=== PATIENT | female | born 1995 | race Caucasian/White ===

== ENCOUNTER 2018-12-02 18:39 | Emergency (ER) | payer OTHER, MEDICAID ==
[~2018-12-02] VITALS: Ht 167.6 cm; Wt 93.2 kg
[2018-12-02 18:47] VITALS: TEMP 98.5
[2018-12-02 20:39] VITALS: BP 107/92; PULSE 83
== END 2018-12-02 20:41 | disposition home or self-care (01) ==
LOC: COL.ER 18:39
DX: S90.32XA Contusion of left foot, initial encounter (principal); S90.31XA Contusion of right foot, initial encounter; W16.512A Jumping or diving into swimming pool striking water surface causing other injury, initial encounter

== ENCOUNTER 2018-12-31 10:00 | Emergency (ER) | payer OTHER, MEDICAID ==
[~2018-12-31] VITALS: Ht 167.6 cm; Wt 90.9 kg
[2018-12-31 10:17] VITALS: TEMP 98.1
[2018-12-31] MEDS ORDERED: PRISTIQ 50 MG T50 MG PO (10:56)
[2018-12-31] MEDS ORDERED: XANAX 1MG1 MG PO (10:56)
[2018-12-31] MEDS ORDERED: ZYRTEC 10MG10 MG PO (10:57)
[2018-12-31] MEDS ORDERED: SINGULAIR 110 MG/TAB PO (10:57)
[2018-12-31 11:10] LABS: COLLECTION METHOD CLEAN CATCH
[2018-12-31 11:20] LABS: MUCOUS Present /lpf; PH 5 (5-8); SQUAMOUS EPITHELIAL 0-2 /hpf; URINE APPEARANCE Hazy; URINE BACTERIA None Seen /hpf; URINE BILIRUBIN Negative (NEGATIVE); URINE BLOOD Negative (NEGATIVE); URINE COLOR Yellow; URINE GLUCOSE Negative (NEGATIVE); URINE KETONE Negative (NEGATIVE); URINE LEUKOCYTE ESTERASE Trace (NEGATIVE); URINE NITRATE Negative (NEGATIVE); URINE PROTEIN(semi-quant) Negative (NEGATIVE); URINE RBC 0-2 /hpf; URINE UROBILINOGEN Negative (NEGATIVE)
[2018-12-31 12:25] VITALS: BP 99/77; PULSE 86
== END 2018-12-31 12:23 | disposition home or self-care (01) ==
LOC: COL.ER 10:00
PROVIDERS: Emergency Medicine
DX: N76.0 Acute vaginitis (principal); B96.89 Other specified bacterial agents as the cause of diseases classified elsewhere; Z20.2 Contact with and (suspected) exposure to infections with a predominantly sexual mode of transmission
CPT/HCPCS: J0696

== ENCOUNTER 2019-01-03 02:18 | Emergency (ER) | payer OTHER, MEDICAID ==
[~2019-01-03] VITALS: Ht 167.6 cm; Wt 90.9 kg
[~2019-01-03 02:18] MED LIST: PRISTIQ 50 MG T50 MG PO; SINGULAIR 110 MG/TAB PO; XANAX 1MG1 MG PO; ZYRTEC 10MG10 MG PO
[2019-01-03 02:20] VITALS: BP 142/77; TEMP 99.3
[2019-01-03] MEDS ORDERED: FLAGYL500 MG PO (03:11)
[2019-01-03 03:28] VITALS: PULSE 84
== END 2019-01-03 03:28 | disposition home or self-care (01) ==
LOC: COL.ER 02:18
DX: N76.0 Acute vaginitis (principal); F41.9 Anxiety disorder, unspecified; F32.9 Major depressive disorder, single episode, unspecified

== ENCOUNTER 2019-03-10 02:41 | Emergency (ER) | payer OTHER, MEDICAID ==
[~2019-03-10] VITALS: Ht 167.6 cm; Wt 98.6 kg
[~2019-03-10 02:41] MED LIST changes: +FLAGYL500 MG PO
[2019-03-10 02:46] VITALS: BP 127/57; TEMP 98.4
[2019-03-10 03:12] LABS: COLLECTION METHOD CLEAN CATCH
[2019-03-10 03:18] LABS: MUCOUS Present /lpf; PH 5 (5-8); URINE APPEARANCE Clear; URINE BACTERIA None Seen /hpf; URINE BILIRUBIN Negative (NEGATIVE); URINE BLOOD Negative (NEGATIVE); URINE COLOR Yellow; URINE GLUCOSE Negative (NEGATIVE); URINE KETONE Negative (NEGATIVE); URINE LEUKOCYTE ESTERASE Negative (NEGATIVE); URINE NITRATE Negative (NEGATIVE); URINE PROTEIN(semi-quant) Negative (NEGATIVE); URINE RBC None Seen /hpf; URINE UROBILINOGEN Negative (NEGATIVE)
[2019-03-10 04:17] LABS: BASO % 0.5 % (0.0-2.0); EOS # 0.2 (0.0-0.7); EOS % 2.2 % (0-4.0); GRAN # 4.9 (1.4-6.5); GRAN % 59.6 % (42.2-75.2); HEMATOCRIT 38.6 % (37.0-47.0); HEMOGLOBIN 12.7 g/dl (12.5-16.0); LYMPH # 2.3 (1.2-3.4); LYMPH % 28.4 % (20.0-51.0); MEAN CELL VOLUME 85 fl (80.0-100.0); MEAN CORPUSCULAR HEMOGLOBIN 28 pg (27.0-31.0); MEAN CORPUSCULAR HGB CONC 33 g/dl (33.0-37.0); MEAN PLATELET VOLUME 10.1 fl (7.4-10.4); MONO # 0.7 (0.1-0.6); MONO % 8.9 % (1.7-9.3); PLATELET COUNT 237 K/mm3 (130-400); RED BLOOD COUNT 4.53 M/mm3 (4.10-5.30); REDCELL DISTRIBUTION WIDTH-CV 13.2 % (11.5-14.5)
[2019-03-10 04:30] LABS: ALANINE AMINOTRANSFERASE 21 U/L (9-52); ALBUMIN 4.2 gm/dL (3.5-5.0); ALKALINE PHOSPHATASE 85 U/L (50-136); ANION GAP 11 mmol/L (7-16); AST,SGOT 22 U/L (15-37); BILIRUBIN,TOTAL < 0.1 mg/dL (0.0-1.0); BLOOD UREA NITROGEN 13 mg/dL (7-17); C-REACTIVE PROTEIN 0.6 mg/dL (0.0-0.9); CALCIUM 9.3 mg/dL (8.4-10.2); CARBON DIOXIDE 24 mmol/L (22-30); CHLORIDE 106 mmol/L (98-107); CREATININE, serum 0.79 (0.52-1.25); GLUCOSE 102 mg/dL (74-106); POTASSIUM 3.9 mmol/L (3.4-5.0); SODIUM 141 mmol/L (137-145); TOTAL PROTEIN 7.6 gm/dL (6.4-8.2)
[2019-03-10 05:41] VITALS: PULSE 74
== END 2019-03-10 05:41 | disposition home or self-care (01) ==
LOC: COL.ER 02:41
PROVIDERS: Emergency Medicine
DX: R10.30 Lower abdominal pain, unspecified (principal); F41.9 Anxiety disorder, unspecified; F32.9 Major depressive disorder, single episode, unspecified; J45.909 Unspecified asthma, uncomplicated
CPT/HCPCS: J1885

== ENCOUNTER 2019-03-24 20:09 | Emergency (ER) | payer OTHER, MEDICAID ==
[~2019-03-24] VITALS: Ht 167.6 cm; Wt 98.2 kg
[2019-03-24 20:13] VITALS: TEMP 98.3
[2019-03-24 20:35] LABS: COLLECTION METHOD CLEAN CATCH
[2019-03-24 20:44] LABS: PH 6 (5-8); URINE APPEARANCE Hazy; URINE BACTERIA None Seen /hpf; URINE BILIRUBIN Negative (NEGATIVE); URINE BLOOD Negative (NEGATIVE); URINE COLOR Yellow; URINE GLUCOSE Negative (NEGATIVE); URINE KETONE Negative (NEGATIVE); URINE LEUKOCYTE ESTERASE Negative (NEGATIVE); URINE NITRATE Negative (NEGATIVE); URINE PROTEIN(semi-quant) Negative (NEGATIVE); URINE RBC 0-2 /hpf; URINE UROBILINOGEN Negative (NEGATIVE)
[2019-03-24 20:52] LABS: BASO % 0.5 % (0.0-2.0); EOS # 0.2 (0.0-0.7); GRAN # 5.4 (1.4-6.5); GRAN % 67.4 % (42.2-75.2); HEMATOCRIT 41.8 % (37.0-47.0); HEMOGLOBIN 13.9 g/dl (12.5-16.0); LYMPH # 1.8 (1.2-3.4); LYMPH % 21.8 % (20.0-51.0); MEAN CELL VOLUME 87 fl (80.0-100.0); MEAN CORPUSCULAR HEMOGLOBIN 29 pg (27.0-31.0); MEAN CORPUSCULAR HGB CONC 33 g/dl (33.0-37.0); MEAN PLATELET VOLUME 10.5 fl (7.4-10.4); MONO # 0.7 (0.1-0.6); MONO % 8.1 % (1.7-9.3); PLATELET COUNT 250 K/mm3 (130-400); RED BLOOD COUNT 4.83 M/mm3 (4.10-5.30); REDCELL DISTRIBUTION WIDTH-CV 13.3 % (11.5-14.5)
[2019-03-24 21:29] LABS: ALBUMIN 4.4 gm/dL (3.5-5.0); BILIRUBIN,TOTAL 0.2 mg/dL (0.0-1.0); C-REACTIVE PROTEIN 0.7 mg/dL (0.0-0.9); CALCIUM 9.2 mg/dL (8.4-10.2); CREATININE, serum 0.67 (0.52-1.25); POTASSIUM 4.1 mmol/L (3.4-5.0); TOTAL PROTEIN 8.1 gm/dL (6.4-8.2)
[2019-03-24 21:57] LABS: THYROID STIMULATING HORMONE 1.88 uIU/mL (0.465-4.680)
[2019-03-24 22:18] VITALS: BP 117/86; PULSE 73
== END 2019-03-24 22:18 | disposition home or self-care (01) ==
LOC: COL.ER 20:09
PROVIDERS: Emergency Medicine
DX: N92.6 Irregular menstruation, unspecified (principal); J45.909 Unspecified asthma, uncomplicated; F32.9 Major depressive disorder, single episode, unspecified; F41.9 Anxiety disorder, unspecified
CPT/HCPCS: J7030

== ENCOUNTER 2019-05-08 00:19 | Emergency (ER) | payer OTHER, MEDICAID ==
[~2019-05-08] VITALS: Ht 167.6 cm; Wt 100.0 kg
[2019-05-08 00:30] VITALS: BP 126/80; TEMP 97.2
[2019-05-08] MEDS ORDERED: PROVENTIL0.09 MG/A1 IH (00:34)
[2019-05-08 01:10] LABS: STREP SCREEN NEGATIVE
[2019-05-08 01:57] VITALS: PULSE 96
== END 2019-05-08 01:57 | disposition home or self-care (01) ==
LOC: COL.ER 00:19
PROVIDERS: Nurse Practitioner
DX: J06.9 Acute upper respiratory infection, unspecified (principal); J45.909 Unspecified asthma, uncomplicated; F41.9 Anxiety disorder, unspecified; F32.9 Major depressive disorder, single episode, unspecified; Z87.891 Personal history of nicotine dependence

== ENCOUNTER 2019-05-12 10:28 | Emergency (ER) | payer OTHER, MEDICAID ==
[~2019-05-12] VITALS: Ht 167.6 cm; Wt 100.0 kg
[~2019-05-12 10:28] MED LIST changes: +PROVENTIL0.09 MG/A1 IH
[2019-05-12 10:39] VITALS: BP 122/79; TEMP 98.2
[2019-05-12 11:22] LABS: STREP SCREEN NEGATIVE
[2019-05-12] MEDS ORDERED: MAGIC MOUTH PO (11:38)
[2019-05-12] MEDS ORDERED: MEDROL 4MG DOSPA4 MG PO (11:38)
[2019-05-12 12:00] VITALS: PULSE 89
== END 2019-05-12 12:00 | disposition home or self-care (01) ==
LOC: COL.ER 10:28
PROVIDERS: Physician Assistant
DX: J02.9 Acute pharyngitis, unspecified (principal); J45.909 Unspecified asthma, uncomplicated